=== PATIENT | female | born 1960 | race Caucasian/White ===

== ENCOUNTER 2023-09-29 06:39 | Day surgery (SDC) | payer MEDICAID, MEDICARE ==
[~2023-09-29 06:39] MED LIST: Bupivacaine 0.5% 30 ML SDV ONE
[2023-09-29] MEDS ORDERED: Rocuronium Bromide 50 MG/5 ML Syringe ONE (06:44)
[2023-09-29] MEDS ORDERED: Lidocaine 2% 5 ML SDV ONE (06:44)
[2023-09-29] MEDS ORDERED: Dexamethasone 4 MG/ML 5 ML MDV ONE (06:44)
[2023-09-29] MEDS ORDERED: Propofol 200 MG/20 ML SDV ONE (06:44)
[2023-09-29] MEDS ORDERED: Sugammadex Sodium 200 MG/2 ML VIAL IV ONE (06:44)
[2023-09-29] MEDS ORDERED: Ketorolac 30 MG/ML SDV ONE (06:44)
[2023-09-29] MEDS ORDERED: Ondansetron 4 MG/2 ML SDV ONE (06:44)
[2023-09-29] MEDS ORDERED: Midazolam 1 MG/ML 2 ML SDV ONE ×2 (06:45→06:46)
[2023-09-29] MEDS ORDERED: fentaNYL 100 MCG/2 ML SDV ONE ×2 (06:45→06:46)
[2023-09-29] MEDS: Scopalamine 1mg/3day Transdermal Patch TOP ONE (07:03)
[2023-09-29] MEDS: Lactated Ringers 1,000 ML IV SCH (07:03)
[2023-09-29] MEDS ORDERED: propofoL 50 ML ONE ×2 (07:07→08:33)
[2023-09-29] MEDS ORDERED: Morphine 2 MG/ML SYRINGE IVPUSH PRN (07:19)
[2023-09-29] MEDS ORDERED: Albuterol 0.083% 2.5 MG/3 ML Neb Soln NEB PRN (07:19)
[2023-09-29] MEDS ORDERED: HYDROmorphone 1 MG/ML Syringe IVPUSH PRN (07:19)
[2023-09-29] MEDS ORDERED: fentaNYL 50 MCG/ML SDV IVPUSH PRN (07:19)
[2023-09-29] MEDS ORDERED: Metoclopramide 10 MG/2 ML SDV IVPUSH PRN (07:19)
[2023-09-29] MEDS ORDERED: Naloxone 0.4 MG/ML SDV IVPUSH PRN (07:19)
[2023-09-29] MEDS ORDERED: droPERidol 5 MG/2 ML SDV IVPUSH PRN (07:19)
[2023-09-29] MEDS ORDERED: Ondansetron 4 MG/2 ML SDV IVPUSH PRN (07:19)
[2023-09-29] MEDS ORDERED: EPINEPHrine 1 MG/1 ML Amp ONE (07:20)
[2023-09-29] MEDS ORDERED: ceFAZolin 2 GM in Sodium Chloride 0.9% 50 ML IV ONE (08:00)
[2023-09-29] MEDS ORDERED: Phenylephrine HCl In 0.9% NaCl 1 MG/10 ML Syringe ONE (08:02)
[2023-09-29] MEDS ORDERED: ceFAZolin 2 GM Vial ONE (08:16)
[2023-09-29] MEDS ORDERED: Bupivacaine 0.5%/EPINEPHrine 1:200,000 30 ML SDV ONE (08:25)
[2023-09-29 12:41] VITALS: BP 150/82; PULSE 67
== END 2023-09-29 12:35 | disposition home or self-care (01) ==
LOC: MW.SDS 06:39
PROVIDERS: ATTEND Orthopaedic Surgery
DX: M75.101 Unspecified rotator cuff tear or rupture of right shoulder, not specified as traumatic (principal); S43.431A Superior glenoid labrum lesion of right shoulder, initial encounter; M19.011 Primary osteoarthritis, right shoulder; M66.821 Spontaneous rupture of other tendons, right upper arm; K21.9 Gastro-esophageal reflux disease without esophagitis; Z91.09 Other allergy status, other than to drugs and biological substances; Z79.899 Other long term (current) drug therapy
CPT/HCPCS: 29823; 29827; 64415; A9270; C1713; J0171; J0665; J0690; J1100; J1885; J2250; J2371; J2704; J3010; J3490; J7120; J2405